=== PATIENT | female | born 1985 | race Caucasian/White ===

== ENCOUNTER 2018-07-11 07:51 | Outpatient (CLI) | payer BC ==
[~2018-07-11] VITALS: Ht 175.3 cm; Wt 78.6 kg
[2018-07-11 08:03] VITALS: BP 109/67; PULSE 100; RESP 18; Ht 175.3 cm; Wt 78.6 kg
--- NOTE | 2018-07-11 10:24 | PN ---
Triage Information Date/Time 07/11/2018 Reason for visit: for NST/ BPP due to IUGR Weeks of Gestation 36 weeks and 3 days /Para 5 para 1 Additional information 32-year-old with IUP at 36 weeks and 3 days with IUGR here today for NST/BPP. care with Dr. Mary Kimble. And has an appointment today with her OB office. She denies any leaking of fluid, vaginal bleeding decreased movement or uterine contractions. Plan per primary OB is to deliver at 37 weeks with continuing NST/BPP Objective Vital Signs Date Temp Pulse Resp B/P (MAP) Pulse Ox O2 O2 Flow FiO2 Time Delivery Rate 07/11/18 98.3 100 18 109/67 Room Air 08:03 (81) Heart Rate: 130's Heart Rate Comments Category 1 and reactive Contractions: None Exam General appearance: Alert and oriented x4 does not appear to be in any acute distress Abdomen: Soft, gravid, fundal height appears correlates to gestational age NST: Category 1 BPP: 8/8 PAL: 7.2, borderline Results/Medications Imaging Results PROCEDURE: US Obstetrical , limited CLINICAL INDICATION: Biophysical profile for well being, IUGR. TECHNIQUE: Multiple real-time images were acquired of the patient's maternal abdomen utilizing a curved array transducer. COMPARISON: None available FINDINGS: There is a single live intrauterine fetus in a cephalic presentation. The placenta is implanted in the fundus and is grade 1. There is no placenta previa or abruptio evident. The amniotic fluid index measures 7.2 cm. The heart rate is 174 beats per minute. Biophysical profile: Tone: 2 breathin Gross body movement: 2 Amniotic fluid: 2 Biophysical profile score: 8/8 IMPRESSION: 1. Single live intrauterine fetus, cephalic presentation. The heart rate is 174 bpm. 2. Fundal placenta, grade 1, no previa or abruptio is evident. 3. Amniotic fluid index 7.2 cm. 4. Biophysical profile score: 8/8. Disposition: Discharge Assessment/Plan IUP at 36 weeks and 3 days IUGR testing reassuring Borderline amniotic fluid Discussed with patient regarding aggressive adequate p.o. hydration and to return to triage after 24 hours to repeat amniotic fluid Discussed with patient to keep her appointment for testing twice a week until her delivery time, which apparently planned to be at 37 weeks labor precautions kick count discussed All questions were answered to patient with satisfaction and patient agreed to comply with instructions. She has an appointment today with her primary OB. Copy of her amniotic fluid level was provided to the patient to present to her primary OB today. CHELO CANADA MD Jul 11, 2018 10:24
--- NOTE | 2018-07-11 10:37 | TRIAGE ---
OB Triage Datetime Report Generated by CPN: 07/11/2018 10:37 Datetime: 07/11/2018 09:48 Labor Evaluation Frequency: 0 Pattern: Normal: <= 5 Contractions in 10 Minutes Resting Tone [place]: Relaxed Heart Rate FHR Baseline Rate: 140 Monitor Mode: External US FHR Baseline Changes: No Baseline Change Variability: Moderate 6-25 bpm Accelerations: 15X15 Decelerations: None Category: Category I Datetime: 07/11/2018 09:00 Labor Evaluation Frequency: 0 Pattern: Normal: <= 5 Contractions in 10 Minutes Resting Tone [place]: Relaxed Heart Rate FHR Baseline Rate: 145 Monitor Mode: External US FHR Baseline Changes: No Baseline Change Variability: Moderate 6-25 bpm Accelerations: 15X15 Decelerations: None Category: Category I Datetime: 07/11/2018 08:22 EGA: 36.3 Datetime: 07/11/2018 08:07 Assessment Type: Triage EGA: 37.3 Maternal Assessment Level of Consciousness: Fully Conscious DTR's/Clonus: DTRs 2+; No Clonus Headache: Denies Blurred Vision: No Respiratory Effort: Unlabored; Regular Rhythm; Equal Expansion Breath Sounds, Left: Clear and Equal Breath Sounds, Right: Clear and Equal Nausea/Vomiting: Denies RUQ Epigastric Pain: Denies Lower Extremities Edema: None Degree: None Upper Extremities Edema: None Degree: None Facial Edema: None Fall Risk Assessment History of Falling: (0) No Secondary Diagnosis: (0) No Ambulatory Aid: (0) Bedrest/Nurse Assist IV Therapy: (0) No Gait: (0) Normal/Bedrest/Immobile Mental Status: (0) Oriented to Own Ability Fall Score: 0 Fall Risk Score Definition: No Risk: No action required Labor Evaluation Frequency: 0 Pattern: Normal: <= 5 Contractions in 10 Minutes Resting Tone [place]: Relaxed Heart Rate FHR Baseline Rate: 145 Monitor Mode: External US Variability: Moderate 6-25 bpm Accelerations: 15X15 Decelerations: None Category: Category I Datetime: 07/11/2018 08:06 Time of Arrival: 07/11/2018 07:45 Arrived By: Ambulatory Arrived From: Home Chief Complaint: R/O IUGR Movement: Present Contractions: Denies/Absent Rupture of Membranes: Denies Vaginal Bleeding: None Vaginal Discharge: Denies Recent Sexual Intercouse: Denies Abdominal Trauma: Not Applicable Patient Complaints: Other Time Provider Notified: 07/11/2018 08:13 Provider Notified: dr cole Initial Plan: AUSTINT BPP AND EFW
== END 2018-07-11 10:20 | disposition home or self-care (01) ==
LOC: OBT 07:51 → L-D 07:52 → OBT 10:20
PROVIDERS: ATTEND Obstetrics & Gynecology
DX: O36.5930 Maternal care for other known or suspected poor fetal growth, third trimester, not applicable or unspecified (principal); Z3A.36 36 weeks gestation of pregnancy
CPT/HCPCS: 76818; G0463

== ENCOUNTER 2018-07-17 06:03 | Inpatient (IN) | payer BC ==
[~2018-07-17] VITALS: Ht 175.3 cm; Wt 79.2 kg
[2018-07-17] MEDS ORDERED: OXYTOCIN 30 UNITS/LR 500 ML BAG IV ONE (07:00)
[2018-07-17 07:35] VITALS: BP 124/72; Ht 175.3 cm; Wt 79.2 kg
[2018-07-17] MEDS ORDERED: LACTATED RINGER'S 1,000 ML IV SCH ×2 (07:36→09:06)
--- NOTE | 2018-07-17 07:43 | PREOPHP ---
DATE OF ADMISSION: 07/17/2018 HISTORY OF PRESENT ILLNESS: This is a 32-year-old female 4, para 1 with a previous in 2013, EDC of 08/03/2018, and last period in 10/2017. This patient had seen me since she was 13 w eeks for care, which was uneventful. The patient is with a slight anemia otherwise . She was seen by ____ due to slow growth on the baby that has been reactive to NST BPP e patient will be evaluated again at 37 weeks by the perinatologist to determine the need for possibl e delivery due to intrauterine growth retardation of less than 10%. The flow on the cord and placent al flow was good, so that is why we are waiting and also NST BPP twice a week has been normal. The p syed had a previous delivery of a baby girl, 6 pounds, at 40 weeks in 2013. Her weight has been 23 pounds of weight gain during her . She had no other issues. PAST MEDICAL HISTORY: Right-sided ovarian cystectomy and a benign breast biopsy. FAMILY HISTORY: Also noncontributory. ALLERGIES: SHE HAS NO ALLERGIES. SOCIAL HISTORY: No history of drug addiction, smoking or alcohol. PHYSICAL EXAMINATION: VITAL SIGNS: She is 5'9" with a blood pressure of 90/60 and weight of 173 pounds with a blood pressu re of 114/75 at 36 weeks. She is afebrile with normal respiration and pulse. HEAD AND NECK: Normal. CHEST: Clear. HEART: Normal sinus rhythm. LUNGS: Clear. ABDOMEN: Soft, nontender. No masses. The heart tones are normal. PELVIC: The examination was with a closed, long cervix. Membranes intact, no effacement, no dilatat ion. EXTREMITIES: Normal with normal pulses and no edema. IMPRESSION AND PLAN: With the diagnosis of 37 weeks with intrauterine growth retardation a nd multiparity and previous section, she is undergoing a repeat section and tubal l igation. The patient states she may change her mind about the tubal ligation, the papers she had sig karina in May and she will let us know at the time of the surgery. The patient has been advised of the possible risks and possible complications of the procedure with her alternatives and options. Vicenta sandra information was provided. She had no more questions and agreed to go ahead with the procedure with full understanding and no more questions. Dictated By: THOMAS FRANKLIN/YARITZA Conf#: [id number] DID#: [id number]
--- NOTE | 2018-07-17 07:49 | HPN ---
Date/Time of Note Date/Time of Note DATE: 07/17/18 TIME: 07:49 Interval H&P Admission Note Pt. seen H&P reviewed: No system changes THOMAS CAPUTO MD Jul 17, 2018 07:49
[2018-07-17] MEDS ORDERED: MISOPROSTOL 200 MCG TAB PR PRN ×2 (08:00→09:30)
[2018-07-17] MEDS ORDERED: OXYTOCIN 30 UNITS/LR 500 ML IV PRN ×2 (08:00→09:30)
[2018-07-17] MEDS ORDERED: METHYLERGONOVINE 0.2 MG INJ IM PRN ×2 (08:00→09:30)
[2018-07-17] MEDS ORDERED: OXYTOCIN 30 UNITS/LR 500 ML IV SCH ×2 (08:00→09:06)
[2018-07-17] MEDS ORDERED: CARBOPROST 250 MCG INJ IM PRN ×2 (08:00→09:30)
[2018-07-17] MEDS ORDERED: CEFAZOLIN 2 GM/50 ML (PMX) 50 ML IVPB SCH (08:00)
[2018-07-17] MEDS ORDERED: morphine SULFATE/PF (10 MG/10 ML) INJ ONE (09:20)
[2018-07-17] MEDS ORDERED: ONDANSETRON 4 MG INJ ONE (09:20)
[2018-07-17] MEDS ORDERED: OXYTOCIN 10 UNIT INJ ONE (09:20)
[2018-07-17] MEDS ORDERED: PHENYLephrine (100 MCG/ML) 10ML SYG ONE (09:20)
[2018-07-17] MEDS: CEFAZOLIN 2 GM/50 ML (PMX) 50 ML IVPB SCH ×2 (09:28→17:51)
[2018-07-17] MEDS: KETOROLAC 30 MG INJ IV SCH ×3 (09:30→21:32)
[2018-07-17] MEDS ORDERED: METHYLERGONOVINE 0.2 MG TAB PO PRN (09:30)
[2018-07-17] MEDS ORDERED: NA PHOSPHATE/BIPHOS 133 ML ENEMA PR PRN (09:30)
[2018-07-17] MEDS ORDERED: HYDROCODONE/APAP (5/325) TAB PO PRN ×2 (09:30)
[2018-07-17] MEDS ORDERED: LANOLIN HPA 1 PKT TOP PRN (09:30)
--- NOTE | 2018-07-17 09:39 | PREAC ---
Date/Time of Note Date/Time of Note DATE: 07/17/18 TIME: 09:37 Anesthesia Eval and Record Evaluation Time Pre-Procedure Interview DATE: 07/17/18 TIME: 09:37 Age 32 Sex female NPO: 8 hrs Preoperative diagnosis IUP Planned procedure Repeat Csection, BTL Past Medical History Past Medical History: None Surgery & Anesthesia Issues No known issue Meds Anticoagulation: No Beta Rocco within 24 hr: No Reason Beta Rocco not given: Pt. not on B-Rocco Reported Medications Vit No.130/Iron/FA ( Tablet) 1 Each Tablet, 1 EACH PO 07/17/18 Current Medications Lactated Ringer's 1,000 ml @ 125 mls/hr Q8H IV ; Start 07/17/18 at 09:06; Stop 07/17/18 at 13:05 Cefazolin Sodium/ Dextrose 50 ml @ 100 mls/hr Q8H IVPB ; Start 07/17/18 at 09:30; Stop 07/18/18 at 01:59 Oxytocin/Lactated Ringer's 500 ml @ 50 mls/hr Q10H IV ; Start 07/17/18 at 09:06; Stop 07/17/18 at 19:05 Methylergonovine Maleate (Methergine) 0.2 mg Q6H PRN PO VAGINAL BLEEDING; Start 07/17/18 at 09:30 Acetaminophen/ Hydrocodone Bitart ([place] (5/325)) 1 tab Q4H PRN PO PAIN LEVEL 4-6; Start 07/17/18 at 09:30 Acetaminophen/ Hydrocodone Bitart ([place] (5/325)) 2 tab Q4H PRN PO PAIN LEVEL 7-10; Start 07/17/18 at 09:30 Ibuprofen (Motrin) 800 mg Q8 PO ; Start 07/17/18 at 14:00 Simethicone (Mylicon) 160 mg Q8H PRN PO DISTENSION/GAS/BLOATING; Start 07/17/18 at 09:30 Senna/Docusate Sodium (Senokot-S) 1 tab BID PO ; Start 07/17/18 at 21:00 Sodium Biphosphate/ Sodium Phosphate (Fleet Enema) 133 ml DAILY PRN WI CONSTIPATION; Start 07/17/18 at 09:30 Lanolin (Lanolin Hpa) 1 applic BEDSIDE MEDICATION PRN TOP BEDSIDE FOR ELIN TO NIPPLES; Start 07/17/18 at 09:30 Diphtheria/ Tetanus/Acell Pertussis (Adacel) 0.5 ml ONCE ONCE IM* ; Start 07/20/18 at 09:00; Stop 07/20/18 at 09:01 Measles/Mumps/ Rubella Vaccine Live (Mmr Ii Vaccine) 0.5 ml ONCE ONCE SC* ; Start 07/20/18 at 09:00; Stop 07/20/18 at 09:01 Oxytocin/Lactated Ringer's 500 ml @ 0 mls/hr ONCE PRN IV VAGINAL BLEEDING; Start 07/17/18 at 09:30 Methylergonovine Maleate (Methergine) 0.2 mg ONCE PRN IM VAGINAL BLEEDING; Start 07/17/18 at 09:30 Carboprost Tromethamine (Hemabate) 250 mcg ONCE PRN IM VAGINAL BLEEDING; Start 07/17/18 at 09:30 Misoprostol (Cytotec) 1,000 mcg ONCE PRN WI VAGINAL BLEEDING; Start 07/17/18 at 09:30 Ketorolac Tromethamine (Toradol) 30 mg Q6H IV ; Start 07/17/18 at 09:30; Stop 07/20/18 at 09:29 Meds reviewed: Yes Allergies Coded Allergies: No Known Drug Allergies (Verified Allergy, Unknown, 07/17/18) Allergies Reviewed: Yes Labs/Studies Labs Reviewed: Reviewed by anesthesiologist Result Diagram: 07/17/18 0750 Laboratory Tests 07/17/18 07:50 Blood Bank Test 07/17/18 07:50 Antibody Screen NEGATIVE Blood Type O POSITIVE Rh Immune Globulin Candidate NO test: Positive Studies: ECG Pre-procedure Exam Last vitals Vital Signs Date Temp Pulse Resp B/P (MAP) Pulse Ox O2 O2 Flow FiO2 Time Delivery Rate 07/17/18 98.2 124/72 07:35 (89) Airway: Adequate mouth opening, Adequate thyromental dist Mallampati: Mallampati II Teeth: Normal Lung: Normal Heart: Normal ASA Physical Status ASA physical status: 2 Emergency: None Planned Anesthetic Neuraxial: Epidural Planned Pain Management Epidural, Parenteral pain med Pre-operative Attestations Prior to commencing anesthesia and surgery, the patient was re-evaluated, there was verification of: *The patient's identity *The results of appropriate recent lab work and preoperative vital signs *The above evaluation not changing prior to induction *Anesthetic plan, risk benefits, alternative and complications discussed with patient/family; questions answered; patient/family understands, accepts and wishes to proceed. BERT DELA CRUZ MD Jul 17, 2018 09:38
--- NOTE | 2018-07-17 10:50 | SIPON ---
Date/Time of Note Date/Time of Note DATE: 07/17/18 TIME: 10:48 Operative Report Preoperative Diagnosis 37 weeks IUGR heart anomaly Multiparity Postoperative Diagnosis Same plus baby girl 9 Fibroid uterus Operation/Procedure Performed Repeat low segment transverse section Bilateral salpingectomy Surgeon see signature line periodontal assistant Dr. DELA CRUZ Anesthesia: spinal Estimated blood loss: other Transfusion Required none Specimen Placenta Grafts/Implants none Complications none THOMAS CAPUTO MD Jul 17, 2018 10:50
--- NOTE | 2018-07-17 10:55 | PAC ---
Date/Time of Note Date/Time of Note DATE: 07/17/18 TIME: 10:54 Post-Anesthesia Notes Post-Anesthesia Note Last documented vital signs Vital Signs Date Temp Pulse Resp B/P (MAP) Pulse Ox O2 O2 Flow FiO2 Time Delivery Rate 07/17/18 98.2 124/72 07:35 (89) Activity: WNL Respiratory function: WNL Cardiovascular function: WNL Mental status: Baseline Pain reasonably controlled: Yes Hydration appropriate: Yes Nausea/Vomiting absent: Yes Comments BP:108/56, pulse:78, spo2:100%, T:98,8 BERT DELA CRUZ MD Jul 17, 2018 10:55
[2018-07-17] MEDS ORDERED: DIPHENHYDRAMINE 50 MG INJ IV PRN (11:00)
[2018-07-17] MEDS ORDERED: morphine 2 MG INJ IV PRN (11:00)
[2018-07-17] MEDS ORDERED: NALOXONE (0.4 MG/ML) INJ IV PRN (11:00)
[2018-07-17] MEDS ORDERED: KETOROLAC 30 MG INJ IV PRN (11:00)
[2018-07-17] MEDS ORDERED: ONDANSETRON 4 MG INJ IV PRN (11:00)
--- NOTE | 2018-07-17 11:58 | OPR ---
DATE OF OPERATION: 07/17/2018 OPERATION PERFORMED: Repeat low segment transverse section, bilateral salpingectomy. SURGEON: Thomas Caputo MD PLANT OPERATOR HELPER: Dr. Aldana. ANESTHESIOLOGIST: Dr. Esparza. ANESTHESIA: Spinal. PROCEDURE: The patient was given spinal anesthesia, placed in the supine position. The abdomen was prepped and draped, and the Geller catheter was placed in the bladder. The abdomen was opened transve rsely 2 cm up the pubic bone for about 10 cm in length. The abdominal cavity was reached. The lower uterine segment was identified being normal. The Javier retractor was placed and an incision was ma de in the segment area of the uterus, and this incision was increased laterally on either side for ab out 3 inches. The baby's head was delivered followed by the body. The cord was clamped and cut. Th e baby was handed over to the coloring checker team. The piece of the cord was sent for cord pH. The c ord blood was obtained. The placenta was removed. The cervix was opened digitally. The uterus cont racted down and was cleaned out and closed in 2 layers using an 0 PDS looped sutures. Interrupted brooks tures with MH chromic were used for further control of hemostasis. Both tubes and ovaries were ilz l. The uterus had a small intramural fibroid. The abdominal cavity was cleaned out. The salpingect phuong was started with the right tube by clamping the mesosalpinx involving the whole tube with fimbria and removing this portion of this tube. Vicryl 2-0 sutures was used for control of hemostasis. The same thing was done on the other side. The procedure was finished by reviewing, putting water in th e abdomen and making sure there was no bleeding and it was found to be good in situation. Intercede was left on the incisional area and the abdomen was closed with a 2-0 Vicryl for the peritoneum, #0 P DS looped suture for the fascia, 2-0 Vicryl for the subcutaneous tissue, 3-0 Monocryl subcuticular to the skin. Dermabond and Steri-Strips were applied. The patient tolerated the procedure well and le ft the OR awake and stable. Sponge counts and instruments counts were correct. Intravenous antibiot ics were given for prophylaxis. Blood loss was about 700 mL. The urine was clear at the end of the procedure. Dictated By: THOMAS FRANKLIN/YARITZA Conf#: [id number] DID#: [id number] CC: THOMAS CAPUTO MD;*EndCC*
[2018-07-17 13:30] VITALS: BP 102/62; PULSE 62; RESP 18
[2018-07-17] MEDS: IBUPROFEN 800 MG TAB PO SCH ×2 (14:00→22:00)
[2018-07-17 16:00] VITALS: BP 99/60; PULSE 60; RESP 18
[2018-07-17 20:15] VITALS: BP 106/59; PULSE 70; RESP 18
[2018-07-17] MEDS: SENNA/DOCUSATE NA (8.6MG/50MG) TAB PO SCH (21:32)
[2018-07-18 00:25] VITALS: BP 98/50; PULSE 81; RESP 18
[2018-07-18] MEDS: CEFAZOLIN 2 GM/50 ML (PMX) 50 ML IVPB SCH (01:02)
[2018-07-18] MEDS: KETOROLAC 30 MG INJ IV SCH ×2 (03:33→09:37)
[2018-07-18 03:45] VITALS: BP 112/65; PULSE 75; RESP 18
[2018-07-18] MEDS: IBUPROFEN 800 MG TAB PO SCH ×3 (05:20→21:25)
[2018-07-18 07:45] VITALS: BP 87/51; PULSE 73; RESP 18
[2018-07-18] MEDS: SENNA/DOCUSATE NA (8.6MG/50MG) TAB PO SCH ×2 (09:37→21:25)
[2018-07-18 11:15] VITALS: BP 90/55; PULSE 73; RESP 18
--- NOTE | 2018-07-18 11:36 | PN ---
Date/Time of Note Date/Time of Note DATE: 07/18/18 TIME: 11:35 Assessment/Plan Lines/Catheters IV Catheter Type (from Nrsg): Saline Lock Subjective 24 Hr Interval Summary Day 1 post Afebrile, doing well with no complaints, pain controlled. not up yet. Encouraged ambulation Incision dry Lochia normal Constitutional: flatus Feeding: advancing diet Pain Control: mild Detailed Summary Eyes: no complaints ENT: no complaints Respiratory: no complaints Cardiovascular: no complaints Gastrointestinal: no complaints Genitourinary: no complaints Musculoskeletal: no complaints Skin: no complaints Neurologic: no complaints Endocrine: no complaints Lymphatic: no complaints Psychological: no complaints, nl mood/affect Immunologic: no complaints Exam/Review of Systems Vital Signs Vitals Vital Signs Date Temp Pulse Resp B/P (MAP) Pulse Ox O2 O2 Flow FiO2 Time Delivery Rate 07/18/18 98.0 73 18 87/51 (63) 99 Room Air 07:45 Intake and Output 07/17/18 07/17/18 07/18/18 1515:00 23:00 07:00 IntakeIntake Total 1275 ml 50 ml OutputOutput Total 1857 ml 550 ml 600 ml BalanceBalance -582 ml -500 ml -600 ml Exam Constitutional: alert, oriented, well developed Psych: no complaints, nl mood/affect Head: normocephalic, atraumatic Eyes: nl conjunctiva, EOMI, nl lids, nl sclera ENMT: nl external ears & nose, nl lips & teeth, nl nasal mucosa & septum, mucosa pink and moist Neck: supple, non-tender Respiratory: clear to auscultation, normal air movement Cardiovascular: regular rate and rhythm, nl pulses Gastrointestinal: soft, nl liver, spleen, non-tender Musculoskeletal: nl extremities to inspection, nl gait and stance Extremities: normal pulses Neurological: CONSTRUCTION ANALYST II-XII intact, nl mental status, nl speech, nl strength Skin: nl turgor, rash or lesions Lymph: nl lymph nodes Results Result Diagram: 07/18/18 0713 THOMAS CAPUTO MD Jul 18, 2018 11:36
[2018-07-18] MEDS ORDERED: BISACODYL (EC) 5 MG TAB PO ONE (12:00)
[2018-07-18 16:05] VITALS: BP 94/55; PULSE 64; RESP 17
[2018-07-18 20:15] VITALS: BP 102/55; PULSE 100; RESP 18
[2018-07-19 04:32] VITALS: BP 109/68; PULSE 69; RESP 18
[2018-07-19] MEDS: IBUPROFEN 800 MG TAB PO SCH ×3 (05:45→21:38)
[2018-07-19 08:00] VITALS: BP 111/52; PULSE 64; RESP 20
[2018-07-19] MEDS: SENNA/DOCUSATE NA (8.6MG/50MG) TAB PO SCH ×2 (09:37→21:38)
[2018-07-19 16:00] VITALS: BP 109/54; PULSE 75; RESP 16
[2018-07-19 20:00] VITALS: BP 110/61; PULSE 68; RESP 18
--- NOTE | 2018-07-19 20:30 | PN ---
Date/Time of Note Date/Time of Note DATE: 07/19/18 TIME: 20:29 Assessment/Plan Lines/Catheters IV Catheter Type (from Nrsg): Saline Lock Subjective 24 Hr Interval Summary Day 2 post Afebrile feeling good Abdominal incision dry clean Tolerating diet and passing gases Pain controlled No active bleeding Constitutional: no complaints, improved, ambulates, BM, flatus, urine output Feeding: advancing diet Pain Control: mild Detailed Summary Eyes: no complaints ENT: no complaints Respiratory: no complaints Cardiovascular: no complaints Gastrointestinal: no complaints Genitourinary: no complaints Musculoskeletal: no complaints Skin: no complaints Neurologic: no complaints Endocrine: no complaints Lymphatic: no complaints Psychological: no complaints, nl mood/affect Immunologic: no complaints Exam/Review of Systems Vital Signs Vitals Vital Signs Date Temp Pulse Resp B/P (MAP) Pulse Ox O2 O2 Flow FiO2 Time Delivery Rate 07/19/18 98.3 75 16 109/54 Room Air 16:00 (72) 07/18/18 99 11:15 Intake and Output 07/18/18 07/18/18 07/19/18 1515:00 23:00 07:00 IntakeIntake Total 250 ml 120 ml OutputOutput Total 700 ml 1700 ml BalanceBalance -450 ml -1580 ml Exam Constitutional: alert, oriented, well developed Psych: no complaints, nl mood/affect Head: normocephalic, atraumatic Eyes: nl conjunctiva, EOMI, nl lids, nl sclera ENMT: nl external ears & nose, nl lips & teeth, nl nasal mucosa & septum, mucosa pink and moist Neck: supple, non-tender Respiratory: clear to auscultation, normal air movement Cardiovascular: regular rate and rhythm, nl pulses Gastrointestinal: soft, nl liver, spleen, non-tender Musculoskeletal: nl extremities to inspection, nl gait and stance Extremities: normal pulses Neurological: TURNER MACHINE II-XII intact, nl mental status, nl speech, nl strength Skin: nl turgor, rash or lesions Lymph: nl lymph nodes Results Result Diagram: 07/18/18 0713 THOMAS CAPUTO MD Jul 19, 2018 20:30
[2018-07-20 04:00] VITALS: BP 106/62; PULSE 68; RESP 20
[2018-07-20] MEDS: IBUPROFEN 800 MG TAB PO SCH ×2 (06:23→14:01)
[2018-07-20 08:45] VITALS: BP 112/61; PULSE 80; RESP 18
[2018-07-20] MEDS: SENNA/DOCUSATE NA (8.6MG/50MG) TAB PO SCH (08:45)
[2018-07-20] MEDS ORDERED: DIPHTH/TET/ACEL PERTUSS (ADULT) 0.5 ML VIAL IM* ONE (09:00)
[2018-07-20] MEDS ORDERED: MEASLES,MUMPS,RUBELLA VACCINE INJ SC* ONE (09:00)
--- NOTE | 2018-07-20 14:11 | PD.PPDC ---
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 Discharge Instruction Condition Lohco4Py Patient Condition: Qofhp4x Good Diet Zwtfh2Hb Diet: Gxfgn2l Resume Regular Diet Activity/Restrictions Pvhal5Ha Activity: Xlfmc5f Normal Activity May Shower Hglmg6Vh Restrictions: Tiemo2t No Exercising No Lifting No Driving No Sexual Activity Nothing in the Vagina No [place] No Tampons, douche Wound/Drain Care Instructions [id number] Wound/Drain Care Instructions: [id number] Wash with soap and water Keep clean and dry Follow-up Follow-up with Physician: 2, Week/Weeks Return to clinic for [id number] CLUTCH INSPECTOR Instructions: [id number] Fever greater than 101 Chills Worsening abdominal pain Excessive Vaginal Bleeding More than 2 pads per hour Unable to tolerate diet [id number] OB Instructions: Mllnc4m Breast Tenderness Depression Blurried Vision Headache [id number] Surgical Instructions: Guyms8q Incisional Drainage Incisional Redness THOMAS CAPUTO MD Jul 20, 2018 14:11
--- NOTE | 2018-07-20 14:17 | DS ---
Date/Time of Note Date/Time of Note DATE: 07/20/18 TIME: 14:14 Discharge Summary Admission/Discharge Info Admit Date/Time Jul 17, 2018 at 07:09 Discharge Date/Time July 20, 2018 Discharge Diagnosis 37 weeks Intrauterine growth retardation Delivery by Patient Condition: Good Procedures Primary low segment transverse section Hx of Present Illness 32 years old female was seen me for care Patient anemic and with intrauterine growth retardation Advice was given for delivery She delivered by section Patient did very well after surgery and she had a clean incision she had been voiding with ambulation with bowel movement and tolerating diet tolerating pain and she is stable to go home Hospital Course The patient is afebrile with pain controlled and ambulatory with no issues Slight anemia that will be treated with diet and iron at home Home Meds Reported Medications Vit No.130/Iron/FA ( Tablet) 1 Each Tablet, 1 EACH PO 07/17/18 Follow-up Plan 1 week Primary Care Provider Care Physician No Primary THOMAS CAPUTO MD Jul 20, 2018 14:17
== END 2018-07-20 15:25 | disposition home or self-care (01) | DRG 785 ==
LOC: MERGE 07:09 → L-D 07:09 → PP1 13:29
PROVIDERS: ADMIT Obstetrics & Gynecology; ATTEND Obstetrics & Gynecology
PROC: 0UT70ZZ Resection of Bilateral Fallopian Tubes, Open Approach (ICD-10-PCS; 2018-07-17)
PROC: 10D00Z1 Extraction of Products of Conception, Low, Open Approach (ICD-10-PCS; principal; 2018-07-17 09:00)
DX: O34.211 Maternal care for low transverse scar from previous cesarean delivery (principal); O36.5930 Maternal care for other known or suspected poor fetal growth, third trimester, not applicable or unspecified; O99.013 Anemia complicating pregnancy, third trimester; Z3A.37 37 weeks gestation of pregnancy; Z37.0 Single live birth; Z30.2 Encounter for sterilization
CPT/HCPCS: 36415; 36600; 82803; 85025; 85610; 85730; 86592; 86850; 86900; 86901; 87340; 88302; 90715; 99464; J0690; J1885; J2274; J2370; J2405; J2590; J7120